=== PATIENT | female | born 2000 | race African-American/Black ===

== ENCOUNTER 2019-12-18 18:17 | Emergency (ER) | payer OTHER ==
[~2019-12-18] VITALS: Ht 154.9 cm; Wt 58.9 kg
[2019-12-18 20:45] LABS: BASO % 0.2 % (0.0-1.0); EOS % 0.8 % (0.0-3.0); HEMATOCRIT 40.8 % (36.0-47.0); HEMOGLOBIN 13.5 g/dl (12.0-15.5); LYMPH # 1.4 10^3/uL (1.5-5.0); LYMPH % 26.7 % (24.0-44.0); MEAN CORPUSCULAR HEMOGLOBIN 30.9 pg (27.0-33.0); MEAN CORPUSCULAR HGB CONC 33.1 g/dl (32.0-36.5); MEAN CORPUSCULAR VOLUME 93.4 fl (80.0-96.0); MONO # 0.5 10^3/uL (0.0-0.8); MONO % 10.7 % (0.0-5.0); NEUTROPHILS # 3.1 10^3/uL (1.5-8.5); NEUTROPHILS % 61.4 % (36.0-66.0); PLATELET COUNT, AUTOMATED 183 10^3/uL (150-450); RED BLOOD COUNT 4.37 10^6/uL (4.00-5.40); WHITE BLOOD COUNT 5.1 10^3/uL (4.0-10.0)
[2019-12-18 22:06] LABS: HEPATITIS B SURFACE ANTIBODY POSITIVE (POSITIVE); HEPATITIS B SURFACE ANTIGEN NEGATIVE (NEGATIVE); HEPATITIS C VIRUS ABY INDEX 0.1 INDEX (<0.8); HIV 1&2 SCREEN CENTAUR NEGATIVE (NEGATIVE)
[2019-12-18 22:08] LABS: CHLAMYDIA DNA AMPLIFICATION POSITIVE (NEGATIVE); GC DNA AMPLIFICATION NEGATIVE (NEGATIVE)
[2019-12-18 22:11] VITALS: BP 132/86
[2019-12-18] MEDS ORDERED: cefTRIAXone SOD 250MG VIAL (J0696 PER 250MG) IM ONE (22:30)
[2019-12-18] MEDS ORDERED: AZITHROMYCIN 250MG TABLET PO ONE (22:30)
[2019-12-18] MEDS ORDERED: LIDOCAINE 1% SDV 5ML VIAL DILUENT ONE (22:30)
[2019-12-19] MEDS ORDERED: AZIT500T5 PO (00:29)
[2019-12-19 08:57] LABS: HCG, SERUM QUALITATIVE NEGATIVE (NEGATIVE)
[2019-12-22 11:11] LABS: HSV-1 DNA Negative (Negative); HSV-2 DNA Negative (Negative)
== END 2019-12-18 22:39 | disposition home or self-care (01) ==
LOC: M ED 18:17
DX: A74.9 Chlamydial infection, unspecified (principal); R10.2 Pelvic and perineal pain; R93.5 Abnormal findings on diagnostic imaging of other abdominal regions, including retroperitoneum; F17.200 Nicotine dependence, unspecified, uncomplicated
CPT/HCPCS: 36415; 81001; 84703; 85025; 86706; 86780; 86803; 87086; 87210; 87340; 87389; 87529; 87661; 96372; 99284; J0696